=== PATIENT | female | born 1950 | race Caucasian/White ===

== ENCOUNTER → 2017-06-30 | Outpatient (CLI) | payer MEDICARE, MEDICAID ==
[~2017-06-30] MED LIST: APIX2.5T OR; ASPI-498 OR
[2017-06-30 16:28] LABS: BUN/Creatinine Ratio 17.6; Calcium 9.2 mg/dL (8.5-10.1)
== END | disposition home or self-care (01) ==
LOC: LAB 15:34
PROVIDERS: ATTEND Internal Medicine
DX: I40.0 Infective myocarditis (principal); E03.9 Hypothyroidism, unspecified; E87.6 Hypokalemia; I48.2 Chronic atrial fibrillation
CPT/HCPCS: 36415; 80048; 80061; 82306; 84443

== ENCOUNTER 2024-03-09 11:59 | Inpatient (IN) | payer MEDICAID, MEDICARE, OTHER ==
[~2024-03-09] VITALS: Ht 165.1 cm; Wt 55.8 kg
[2024-03-09] MEDS: dilTIAZem 25 MG/5 ML VIAL IV ONE (12:30)
[2024-03-09] MEDS ORDERED: ACETAMINOPHEN 325 MG TAB PO PRN ×2 (12:30→22:45)
[2024-03-09] MEDS: LEVALBUTEROL HCL 1.25 MG/3 ML NEB ONE (12:39)
[2024-03-09 12:54] LABS: Basophils # (auto) 0 10 ^3/uL (0-0.2); Basophils % (auto) 0.3 % (0.0-2.0); Eosinophils # (auto) 0 10 ^3/uL (0-0.8); Eosinophils % (auto) 0.1 % (0.0-7.0); Hematocrit 42.8 % (36.0-46.0); Hemoglobin 14.4 g/dL (12.2-16.2); Lymphocytes # (auto) 1.1 10 ^3/uL (0.4-5.4); Lymphocytes % (auto) 13.6 % (10.0-50.0); Mean Corpuscular Hemoglobin 31.4 pg (28.0-32.0); Mean Corpuscular Hgb Conc. 33.7 g/dL (32.0-36.0); Mean Corpuscular Volume 93.4 fL (80.0-100.0); Monocytes # (auto) 0.4 10 ^3/uL (0-1.3); Monocytes % (auto) 4.6 % (0.0-12.0); Neutrophils # (auto) 6.9 10 ^3/uL (1.6-8.6); Neutrophils % (auto) 81.4 % (37.0-80.0); Red Blood Cells 4.58 10^6/uL (4.0-5.20); Red Cell Distribution Width 15.7 % (11.8-14.3); White Blood Cell 8.4 10^3/uL (4.4-10.8)
[2024-03-09 13:03] LABS: Base Excess 1.3 mmol/L (-2.0-2.0)
[2024-03-09] MEDS: LEVALBUTEROL HCL 1.25 MG/3 ML NEB NEB ONE (13:03)
[2024-03-09 13:09] LABS: INR 1.16 (0.9-1.15); Partial Thromboplastin Time 29.9 SEC (24.5-34.5); Prothrombin Time 12.1 sec (9.3-11.8)
[2024-03-09 13:26] LABS: Alanine Aminotransferase 12 U/L (7-40); Alkaline Phosphatase 68 U/L (46-116); Calcium 8.7 mg/dL (8.7-10.4); Carbon Dioxide 29 mmol/L (20-30); Chloride 111 mmol/L (98-107); Glucose 107 mg/dL (74-106); Magnesium 1.6 mg/dL (1.6-2.6); Potassium 3.6 mmol/L (3.5-5.1); Sodium 145 mmol/L (136-145)
[2024-03-09 13:27] LABS: Albumin 3.4 g/dL (3.2-4.8); Anion Gap 5 (5-15); Aspartate Aminotransferase 14 U/L (13-40); BUN/Creatinine Ratio 20.4 (10.0-20.0); Bilirubin, Total 1.1 mg/dL (0.2-1.0); Blood Urea Nitrogen 22 mg/dL (9-23)
[2024-03-09 13:54] LABS: Blood Alcohol < 3.0 mg/dL (<10)
[2024-03-09] MEDS: PANTOPRAZOLE 40 MG/10 ML VIAL INJ IV ONE ×2 (17:07→17:08)
[2024-03-09] MEDS: methylPREDNISolone SOD SUCC 125 MG/2 ML VL IV ONE (17:07)
[2024-03-09] MEDS: methylPREDNISolone SOD SUCC 125 MG/2 ML VL ONE (17:07)
[2024-03-09] MEDS: cefTRIAXone 1GM/50ML D5W 50 ML IV SCH (17:07)
[2024-03-09] MEDS: cefTRIAXone 1GM/50ML D5W 50 ML IV ONE (17:08)
[2024-03-09] MEDS: ASPirin 81 mg TAB PO ONE (17:25)
[2024-03-09] MEDS: FUROSEMIDE 40 MG/4 ML VIAL IV ONE (17:26)
[2024-03-09] MEDS: NITROGLYCERIN 0.2MG/HR TOPICAL PATCH TD ONE (17:26)
[2024-03-09] MEDS: ASPirin 81 mg TAB ONE (17:26)
[2024-03-09] MEDS: AZITHROMYCIN 500MG/ 250ML 250 ML IV ONE ×2 (18:05→18:06)
[2024-03-09] MEDS ORDERED: HYDROcodone-ACET 5/325MG TAB PO PRN (22:45)
[2024-03-09] MEDS ORDERED: ONDANSETRON HCL 4 MG/2 ML VIAL IV PRN (22:45)
[2024-03-09] MEDS ORDERED: DOCUSATE SOD 100 MG CAP PO PRN (22:45)
[2024-03-09 23:45] VITALS: PULSE 93; RESP 16; O2SAT 95
[2024-03-09] MEDS ORDERED: MORPHINE SULFATE INJ 2 MG/ml SYRG IV PRN (23:45)
[2024-03-09] MEDS ORDERED: NITROGLYCERIN 0.4 MG SL TAB SL PRN (23:45)
[2024-03-09] MEDS: LEVALBUTEROL HCL 1.25 MG/3 ML NEB NEB SCH (23:54)
[2024-03-09 23:55] VITALS: PULSE 93; RESP 16; O2SAT 99
[2024-03-09 23:56] VITALS: O2SAT 95
[2024-03-10] VITALS (19 sets, daily range): BP systolic 137–180; BP diastolic 70–103; PULSE 65–108; RESP 16–20; TEMP 97.4–99.1; O2SAT 86–100
[2024-03-10 05:16] LABS: Rapid Influenza A Negative (Negative); Rapid Influenza B Negative (Negative)
[2024-03-10 05:17] LABS: COVID19 ANTIGEN SOFIA FIA NEGATIVE (NEGATIVE)
[2024-03-10] MEDS: SODIUM CHLOR 0.9% PF (SALINE LOCK) 10ML VIAL/SYR IV SCH (06:16)
[2024-03-10] MEDS: hydrALAZINE HCL 20 MG/ML VL IV PRN (06:16)
[2024-03-10] MEDS: LEVOTHYROXINE SODIUM 100 MCG TAB PO SCH (06:43)
[2024-03-10 06:46] LABS: Basophils # (auto) 0 10 ^3/uL (0-0.2); Eosinophils # (auto) 0 10 ^3/uL (0-0.8); Hematocrit 46.6 % (36.0-46.0); Hemoglobin 15.4 g/dL (12.2-16.2); Lymphocytes # (auto) 0.4 10 ^3/uL (0.4-5.4); Lymphocytes % (auto) 5.6 % (10.0-50.0); Mean Corpuscular Hemoglobin 31.2 pg (28.0-32.0); Mean Corpuscular Hgb Conc. 33.1 g/dL (32.0-36.0); Mean Corpuscular Volume 94.3 fL (80.0-100.0); Monocytes # (auto) 0.1 10 ^3/uL (0-1.3); Monocytes % (auto) 1.1 % (0.0-12.0); Neutrophils # (auto) 6.1 10 ^3/uL (1.6-8.6); Neutrophils % (auto) 93.3 % (37.0-80.0); Nucleated Red Blood Cells % 0.1 %; Red Blood Cells 4.94 10^6/uL (4.0-5.20); White Blood Cell 6.5 10^3/uL (4.4-10.8)
[2024-03-10 06:53] LABS: Alanine Aminotransferase 11 U/L (7-40); Alkaline Phosphatase 76 U/L (46-116); Anion Gap 13 (5-15); Aspartate Aminotransferase 19 U/L (13-40); BUN/Creatinine Ratio 13.6 (10.0-20.0); Blood Urea Nitrogen 19 mg/dL (9-23); Calcium 9.5 mg/dL (8.7-10.4); Carbon Dioxide 24 mmol/L (20-30); Chloride 107 mmol/L (98-107); Glucose 216 mg/dL (74-106); Potassium 3.8 mmol/L (3.5-5.1); Sodium 144 mmol/L (136-145)
[2024-03-10 06:54] LABS: Bilirubin, Total 0.6 mg/dL (0.2-1.0); Total Protein 7.3 g/dL (5.7-8.2)
[2024-03-10] MEDS: FUROSEMIDE 40 MG/4 ML VIAL IV SCH (08:08)
[2024-03-10] MEDS: methylPREDNISolone SOD SUCC 40 MG/ML VL IV SCH (08:09)
[2024-03-10] MEDS: ASPirin 81 mg TAB PO SCH (08:09)
[2024-03-10] MEDS: CARVEDILOL 12.5 MG TAB PO SCH (08:09)
[2024-03-10] MEDS: PANTOPRAZOLE 40 MG/10 ML VIAL INJ IV SCH (08:09)
[2024-03-10] MEDS ORDERED: [UNRECOGNIZED DRUG - CODE] PO (08:25)
[2024-03-10] MEDS ORDERED: [UNRECOGNIZED DRUG - CODE] PO (08:25)
[2024-03-10] MEDS ORDERED: POM PO (09:51)
[2024-03-10] MEDS: APIXABAN 2.5 MG TAB PO SCH (11:04)
[2024-03-10 11:38] LABS: Amphetamine Screen, Urine Pos (NEGATIVE); Barbiturate Scree,Urine Neg (NEGATIVE); Benzodiazephine Screen, Urine Neg (NEGATIVE); Cannabinoid Screen, Urine Neg (NEGATIVE); Cocaine Screen, Urine Neg (NEGATIVE); Opiate Scree,Urine Neg (NEGATIVE); Phencyclidine Screen, Urine Neg (NEGATIVE)
[2024-03-10 11:51] LABS: Urine Bacteria FEW /hpf (None Seen); Urine Blood TRACE /uL (Negative); Urine Budding Yeast OCCASIONAL /hpf (None Seen); Urine Clarity Clear (Clear); Urine Color Colorless (Yellow); Urine Hyaline Cast FEW /lpf (0 - 2); Urine Protein, UAD Negative (Negative); Urine Specific Gravity 1.006 (1.001-1.035); Urine Urobilinogen Normal (Negative); Urine WBC 85 /hpf (0 - 5)
[2024-03-10] MEDS: cefTRIAXone 1GM/50ML D5W 50 ML IV ONE (11:58)
[2024-03-10] MEDS: LEVOTHYROXINE SODIUM 100 MCG TAB PO ONE (14:09)
[2024-03-10] MEDS: MAGNESIUM SULFATE 1GM/100ML 100 ML IV SCH (14:09)
[2024-03-10] MEDS: DIGOXIN (250MCG/ML) 2 ML AMPULE IV SCH ×2 (14:10→21:34)
[2024-03-10] MEDS: SOD CHL 0.45% 1,000 ML IV ONE (14:10)
[2024-03-11] VITALS (13 sets, daily range): BP systolic 132–156; BP diastolic 73–91; PULSE 61–78; RESP 14–24; TEMP 97.4–98.5; O2SAT 93–100
[2024-03-11 05:32] LABS: Hematocrit 37.5 % (36.0-46.0); Hemoglobin 12.5 g/dL (12.2-16.2); Mean Corpuscular Hgb Conc. 33.2 g/dL (32.0-36.0); Mean Corpuscular Volume 93.2 fL (80.0-100.0); Red Blood Cells 4.03 10^6/uL (4.0-5.20); Red Cell Distribution Width 16.2 % (11.8-14.3); White Blood Cell 16.2 10^3/uL (4.4-10.8)
[2024-03-11 05:37] LABS: Chloride 106 mmol/L (98-107); Potassium 3.9 mmol/L (3.5-5.1); Sodium 140 mmol/L (136-145)
[2024-03-11 05:38] LABS: Anion Gap 4 (5-15); Calcium 8.5 mg/dL (8.7-10.4); Carbon Dioxide 30 mmol/L (20-30)
[2024-03-11 05:40] LABS: Band Neutrophils % (manual) 0; Basophils % (manual) 0 (0.0-2.0); Blast Cells 0; Eosinophils % (manual) 0 (0-7); Metamyelocytes % 0; Monocytes % (manual) 0 (0-12); Myelocytes % 0; Promyelocytes % 0; Reactive Lymphocytes 0
[2024-03-11 05:43] LABS: BUN/Creatinine Ratio 20.7 (10.0-20.0); Blood Urea Nitrogen 24 mg/dL (9-23); Glucose 152 mg/dL (74-106)
[2024-03-11] MEDS: LEVOTHYROXINE SODIUM 100 MCG TAB PO SCH (06:04)
[2024-03-11 08:58] LABS: Lymphocytes % (manual) 1 (10.0-50.0); Platelet Estimate Adequate; RBC Morphology Normal
[2024-03-11] MEDS: DIGOXIN 0.125 MG TAB PO SCH (09:09)
[2024-03-11] MEDS: predniSONE 20 MG TAB PO SCH (09:31)
[2024-03-11 10:30] LABS: Triglycerides 66 mg/dL (< 150)
[2024-03-11 10:31] LABS: Cholesterol 94 mg/dL (< 200); HDL Cholesterol 36 mg/dL (40-59); LDL Cholesterol 42 mg/dL (< 100)
[2024-03-11] MEDS: amLODIPine BESYLATE 5 MG TAB PO ONE (12:12)
[2024-03-11 19:38] LABS: Base Excess 2.1 mmol/L (-2.0-2.0)
[2024-03-12] VITALS (17 sets, daily range): BP systolic 117–159; BP diastolic 55–83; PULSE 56–84; RESP 14–20; TEMP 97.6–98.3; O2SAT 1–100
[2024-03-12 05:56] LABS: Basophils # (auto) 0 10 ^3/uL (0-0.2); Eosinophils # (auto) 0 10 ^3/uL (0-0.8); Hematocrit 39.2 % (36.0-46.0); Lymphocytes # (auto) 0.4 10 ^3/uL (0.4-5.4); Lymphocytes % (auto) 3.5 % (10.0-50.0); Mean Corpuscular Hgb Conc. 33.1 g/dL (32.0-36.0); Mean Corpuscular Volume 93.4 fL (80.0-100.0); Monocytes # (auto) 0.4 10 ^3/uL (0-1.3); Monocytes % (auto) 2.9 % (0.0-12.0); Neutrophils # (auto) 11.3 10 ^3/uL (1.6-8.6); Neutrophils % (auto) 93.6 % (37.0-80.0); Red Cell Distribution Width 15.7 % (11.8-14.3); White Blood Cell 12.1 10^3/uL (4.4-10.8)
[2024-03-12 06:10] LABS: Chloride 100 mmol/L (98-107); Potassium 3.8 mmol/L (3.5-5.1); Sodium 139 mmol/L (136-145)
[2024-03-12 06:11] LABS: Anion Gap 5 (5-15); Calcium 8.8 mg/dL (8.7-10.4); Carbon Dioxide 34 mmol/L (20-30)
[2024-03-12 06:16] LABS: BUN/Creatinine Ratio 34.4 (10.0-20.0); Blood Urea Nitrogen 33 mg/dL (9-23); Glucose 125 mg/dL (74-106); Magnesium 1.9 mg/dL (1.6-2.6)
[2024-03-12] MEDS: amLODIPine BESYLATE 5 MG TAB PO SCH (09:10)
[2024-03-12] MEDS ORDERED: DIGO1TAB48 PO (13:40)
[2024-03-12] MEDS ORDERED: FURO20TA3 PO (13:40)
[2024-03-12] MEDS ORDERED: AMLO1TAB21 PO (13:40)
[2024-03-12] MEDS ORDERED: LEV100T PO (13:40)
[2024-03-12] MEDS ORDERED: PRED20TA2 PO (13:40)
[2024-03-12] MEDS ORDERED: CARV-216 PO (13:40)
[2024-03-12] MEDS ORDERED: FURO1TAB33 PO (13:40)
[2024-03-12] MEDS ORDERED: ALBUAER3 IN (13:48)
[2024-03-13] VITALS (15 sets, daily range): BP systolic 130–144; BP diastolic 66–76; PULSE 61–78; RESP 18–20; TEMP 97.7–98.5; O2SAT 94–100
== END 2024-03-13 17:33 | disposition left against medical advice (07) | DRG 291 ==
LOC: EDBD 11:59 → ER 11:59 → TELE 23:33 → TELE-EAST 23:33
PROVIDERS: ADMIT Internal Medicine Pulmonary Disease; ATTEND Internal Medicine Pulmonary Disease
DX: I13.0 Hypertensive heart and chronic kidney disease with heart failure and stage 1 through stage 4 chronic kidney disease, or unspecified chronic kidney disease (principal); I50.33 Acute on chronic diastolic (congestive) heart failure; I48.20 Chronic atrial fibrillation, unspecified; J44.1 Chronic obstructive pulmonary disease with (acute) exacerbation; N17.9 Acute kidney failure, unspecified; N39.0 Urinary tract infection, site not specified; I42.7 Cardiomyopathy due to drug and external agent; E03.9 Hypothyroidism, unspecified; F17.210 Nicotine dependence, cigarettes, uncomplicated; Z53.29 Procedure and treatment not carried out because of patient's decision for other reasons; Z20.822 Contact with and (suspected) exposure to COVID-19; N18.9 Chronic kidney disease, unspecified; T50.995A Adverse effect of other drugs, medicaments and biological substances, initial encounter; K43.5 Parastomal hernia without obstruction or gangrene; I27.20 Pulmonary hypertension, unspecified; J43.9 Emphysema, unspecified; F15.90 Other stimulant use, unspecified, uncomplicated; I08.1 Rheumatic disorders of both mitral and tricuspid valves; Z79.01 Long term (current) use of anticoagulants; Z82.5 Family history of asthma and other chronic lower respiratory diseases; Z82.3 Family history of stroke; Z82.49 Family history of ischemic heart disease and other diseases of the circulatory system; Z93.3 Colostomy status; Y92.89 Other specified places as the place of occurrence of the external cause
CPT/HCPCS: 36415; 36600; 71045; 80048; 80053; 80061; 80162; 80307; 80320; 81001; 82805; 83036; 83605; 83735; 83880; 84443; 84484; 85007; 85025; 85027; 85379; 85610; 85730; 87040; 87077; 87186; 87426; 87804; 93005; 93306; 93970; 94640; 96365; 96375; C9113; G0378